=== PATIENT | female | born 1995 | race Asian ===

== ENCOUNTER 2022-04-16 15:17 | Emergency (ER) | payer OTHER ==
[2022-04-16 17:03] VITALS: BP 131/85
--- NOTE | 2022-04-16 17:04 | ED Physician Documentation ---
History of Present Illness - Stated complaint Stated Complaint: NECK AND ARM PX - Chief complaint Chief Complaint: Back Pain - Additonal information Additional information: 26-year-old female presents emergency department for evaluation of 3 days right posterior shoulder pain with radiation into her neck. She reports that she woke up 1 morning with it. She has had a similar symptom on the left side that resolved without treatment after a few days. Despite taking ibuprofen and using a lidocaine patch no change in symptoms. She has some radiation into the neck and occasionally feels tingling in her fingers on the right side. She did have a history of spinal scoliosis for which she was fully rotted when she was 19. She has no recent falls or trauma. No fevers dysphonia or rash. Review of Systems Constitutional: denies: Fever, Chills Eyes: reports: Reviewed and negative Ears: reports: Reviewed and negative Nose: reports: Reviewed and negative Throat: reports: Reviewed and negative Cardiac: reports: Reviewed and negative Respiratory: reports: Reviewed and negative : reports: Reviewed and negative Skin: reports: Reviewed and negative Musculoskeletal: reports: Neck pain Neurologic: denies: Focal weakness, Numbness, Near syncope, Syncope, Headache PD PAST MEDICAL HISTORY - Present Medications Home Medications: Ambulatory Orders Medication Instructions Recorded Confirmed Cyclobenzaprine [Flexeril] 10 mg PO DAILY 6 Days #10 tablet 04/16/22 - Allergies Allergies/Adverse Reactions: Allergies Allergy/AdvReac Type Severity Reaction Status Date / Time No Known Drug Allergies Allergy Verified 04/16/22 15:31 PD ED PE NORMAL - General General: Alert and oriented X 3, No acute distress, Well developed/nourished - HEENT HEENT: Atraumatic, Moist mucous membranes - Neck Neck: Supple, no meningeal sign, No bony TTP, No adenopathy, Other (Mild tenderness in the body of the right trapezius muscle that radiates into the neck. No swelling ecchymosis rash or induration. Full range of motion of the neck in all planes. Motor strength 5 of 5 bilaterally at shoulders elbows and wrists. 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 Clinically no signs of infection. She is very concerned as she has a history of scoliosis and spinal rodding. However she has full range of motion of the neck and lower lumbar spine. We discussed that with a history of rodding it is extremely unlikely that she has had any movement or displacement of her hardware. Clinically full rom of cervical spine. Little suspicion for cervical radiculopathy. Will defer imaging The body of the trapezius was quite tender with pressure and palpation. It I did offer a trigger point injection though the patient declined that at this time. She would like to try gentle massage warm compress and muscle relaxer. Prescription has been sent to the [facility] in [place]. Departure - Departure Disposition: 01 Home, Self Care Clinical Impression: Strain of right trapezius muscle Qualifiers: Encounter type: initial encounter Qualified Code(s): S46.811A - Strain of other muscles, fascia and tendons at shoulder and upper arm level, right arm, initial encounter Condition: Stable Record reviewed to determine appropriate education?: Yes Prescriptions: Cyclobenzaprine [Flexeril] 10 mg PO DAILY 6 Days #10 tablet Comments: You are seen today in the emergency department for pain in the back of your right muscle that radiates into your neck. As we discussed at the bedside the trapezius muscle here may be a little inflamed. I do recommend that you take ibuprofen 600 mg with food 2-3 times a day. Very gentle massage can help improve this pain. A limited prescription for Flexeril which is a muscle relaxer has been sent to the pharmacy. This can cause excessive sleepiness and drowsiness so please do not drive after taking it. In general most episodes such as this will begin to resolve after 5 to 7 days. You should return to the emergency department if you develop any fevers, have sudden weakness in your arms, or cannot turn her neck.
== END 2022-04-16 17:14 | disposition home or self-care (01) ==
LOC: ED 15:17
DX: S46.811A Strain of other muscles, fascia and tendons at shoulder and upper arm level, right arm, initial encounter (principal); X58.XXXA Exposure to other specified factors, initial encounter
CPT/HCPCS: 99282